=== PATIENT | male | born 1985 | race African-American/Black ===

== ENCOUNTER → 2021-02-25 08:02 | Outpatient (BNVA) | payer OTHER, SELFPAY | PROVIDERS: PCP Internal Medicine; Visit Provider Anesthesiology ==

== ENCOUNTER 2021-03-01 18:31 | Outpatient (REF) | payer OTHER, SELFPAY ==
--- NOTE | ~2021-03-01 | MR_ITS ---
EXAMINATION: MR LUMBAR SPINE WITHOUT CONTRAST CLINICAL INFORMATION: 35-year-old with spondylosis without myelopathy or radiculopathy. COMPARISON: None TECHNIQUE: MRI of the lumbar spine was obtained using routine sequences without contrast. FINDINGS: Coronal Alignment: Normal. Sagittal Alignment: Normal. Lumbosacral Junction: Normal. 1.4 cm Tarlov cyst in the sacral canal slightly to the right of midline at the S1-S2 level. Another 1.4 cm Tarlov cyst is seen on the left side of the lumbosacral canal at the L5-S1 level. Vertebral Bodies: Normal height. Disc Spaces and Endplates: [id number] disc space height loss at L3-L4 and L4-L5, moderate disc space height loss at L5-S1 and mild disc space height loss at L2-L3 with multilevel disc desiccation most apparent at L3-L4 and L4-L5. Scattered small Schmorl's nodes and minor degrees of spondylosis. Spinal Canal: No abnormal developmental findings. Bone Marrow: No significant marrow-replacing process or bone marrow edema. Conus Medullaris: Terminates at T12-L1. Morphology and signal is normal. Intradural Nerve Roots: Within normal limits. L5-S1: Concentric disc bulging with a superimposed central to left subarticular disc herniation noted encroaching on the left subarticular zone and traversing left S1 nerve root. No significant thecal sac encroachment. There is a moderate degree of epidural lipomatosis at this level with a developmentally small, narrowed appearance to the thecal sac. There is mild facet arthrosis on the left without significant neural foraminal stenosis. L4-L5: Mild concentric diffuse disc bulging noted, with a superimposed broad-based right central to subarticular extruded disc herniation with mild caudal migration into the right lateral recess with flattening of the dural sac asymmetric to the right, with impingement on the traversing right L5 nerve root. No significant facet arthrosis. No significant neural foraminal stenosis or central spinal canal stenosis. L3-L4: Mild diffuse disc bulging is noted with a superimposed small left subarticular disc protrusion with an annular fissure noted and mild narrowing of the left subarticular zone with minor facet arthrosis noted and mild left-sided neural foraminal stenosis without neural impingement. No central spinal canal stenosis. L2-L3: Disc bulging is noted with a superimposed left paramedian to subarticular disc herniation which indents the ventral thecal sac on the left and moderately narrows the left subarticular zone. There is also a smaller right paracentral to subarticular disc protrusion with mild encroachment on the right subarticular zone. No central spinal canal stenosis or neural foraminal compromise. L1-L2: Mild broad-based central to right paramedian disc herniation with mild flattening of the dural sac, slightly asymmetric to the right, without spinal canal or neural foraminal stenosis. Paraspinal/Retroperitoneal: The paravertebral soft tissues are unremarkable. MR/MR lumbar spine wo con IMPRESSION: 1. Multilevel discogenic degenerative changes primarily between L2-L3 and L5-S1 inclusive, with multilevel disc bulging and disc herniations as detailed above. 2. Left S1 nerve root impingement in the left subarticular recess, right L5 nerve root impingement in the right lateral recess, left subarticular recess narrowing at L3-L4 and L2-L3 as discussed above related to disc herniations. 3. No significant neural foraminal stenosis.
== END 2021-03-01 18:32 | disposition home or self-care (01) ==
LOC: HO.MRI 18:31
PROVIDERS: Visit Provider Anesthesiology
DX: M47.816 Spondylosis without myelopathy or radiculopathy, lumbar region (principal)
CPT/HCPCS: 72148

== ENCOUNTER → 2021-03-10 13:07 | Outpatient (BNVA) | payer OTHER, SELFPAY | PROVIDERS: PCP Internal Medicine; Visit Provider Anesthesiology ==